=== PATIENT | female | born 1965 | race Caucasian/White ===

== ENCOUNTER 2017-01-29 14:26 | Emergency (ER) | payer MEDICAID ==
[~2017-01-29] VITALS: Ht 144.8 cm; Wt 81.6 kg
[~2017-01-29 14:26] MED LIST: ACTOS30 MG PO; COZAAR50 MG PO; GLUCOPHAGE1000 MG PO; LEVEMIR100 U/M1 SC; LEVEMIR100 U/ML SUBQ; LIPITOR20 MG PO; NEURONTIN300 MG PO
[2017-01-29 15:05] VITALS: BP 135/74
--- NOTE | 2017-01-29 15:32 | NUR ---
Patient to bed 05.
--- NOTE | 2017-01-29 15:34 | NUR ---
PT PRESENTS TO ER W/C/O EPIGASTRIC PAIN AND VOMITING SINCE THIS AM. HX DM.Pt states she has diarrhea and last noc and vomitted today; SKIN IS PINK/WARM/DRY; AAOX4 WITH EVEN AND STEADY GAIT; LUNGS CLEAR BL; HR EVEN AND REGULAR; PT DENIES ANY FEVER, CP, SOB, OR COUGH AT THIS TIME; PATIENT STATES PAIN OF 10/10 AT THIS TIME; VSS; PATIENT POSITIONED FOR COMFORT; HOB ELEVATED; BEDRAILS UP X2; BED DOWN. ER MD at bedside.
[2017-01-29] MEDS ORDERED: ONDANSETRON 4 MG/2 ML VIAL IVP ONE (15:35)
[2017-01-29] MEDS ORDERED: HYDROmorphone 1 MG/ML AMP IVP ONE (15:35)
--- NOTE | 2017-01-29 17:00 | NUR ---
PT WETN TO CT SCAN ACCOMPANIED BY TECH.
--- NOTE | 2017-01-29 17:27 | NUR ---
BACK FROM CT SCAN;NO ACUTE DISTRESS NOTED;ALL MONITORS IN PLACED;WILL CONTINUE TO MONITOR PT.
--- NOTE | 2017-01-29 17:57 | NUR ---
JENNY CABA AT BEDSIDE.
--- NOTE | 2017-01-29 18:26 | NUR ---
Patient discharged with v/s stable. Written and verbal after care instructions given and explained. Patient alert, oriented and verbalized understanding of instructions. Ambulatory with steady gait. All questions addressed prior to discharge. ID band removed. Patient advised to follow up with PMD. Rx of ZOFRAN ,BACTRIM AND PERCOCET given. Patient educated on indication of medication including possible reaction and side effects. Opportunity to ask questions provided and answered.
[2017-01-29 18:27] VITALS: BP 129/71
== END 2017-01-29 18:26 | disposition home or self-care (01) ==
LOC: MED 14:26
DX: N39.0 Urinary tract infection, site not specified (principal); E11.9 Type 2 diabetes mellitus without complications; I10 Essential (primary) hypertension; Z90.49 Acquired absence of other specified parts of digestive tract
CPT/HCPCS: 36415; 74177; 80053; 81001; 82150; 83690; 84484; 85025; 85651; 86140; 93005; 96374; 96375; 99285; J1170; J2405; Q9967

== ENCOUNTER 2018-09-26 18:35 | Inpatient (IN) | payer MEDICAID ==
[~2018-09-26] VITALS: Ht 160 cm; Wt 92.5 kg
[~2018-09-26 18:35] MED LIST changes: -ACTOS30 MG PO; +ATOR20TA PO; +COZ50 PO; -COZAAR50 MG PO; -GLUCOPHAGE1000 MG PO; +INSU100S55 SC; -LEVEMIR100 U/M1 SC; -LEVEMIR100 U/ML SUBQ; -LIPITOR20 MG PO; +METF1000 PO; -NEURONTIN300 MG PO; +PIOG30TA PO
[2018-09-26 18:53] VITALS: BP 146/101
--- NOTE | 2018-09-26 19:10 | NUR ---
NOTIFIED DR. GOSS OF BLOOD SUGAR AND 06/11 PAIN. STATED, "NO NEW ORDERS UNLESS NEEDING TO BE INTUBATED."
--- NOTE | 2018-09-26 19:16 | NUR ---
Pt presents to ED with complains of diffuse abdominal pain starting yesterday worsening today. Pt c/o bloating pain, diffusely 10/10. Pt also c/o nausea and chills. Denies fever or vomiting. Denies diarrhea. LBM 3 days ago. Pt tender to palpation in all quadrants, bowel sounds present x4 quadrants. Denies any heavy lifting. Denies having pain like this in the past. Pt appears uncomfortable, VSS.
[2018-09-26 19:23] LABS: BASOPHILS # (AUTO) 0.1 K/uL (0.00-0.22); BASOPHILS % (AUTO) 0.7 % (0.0-2.0); EOSINOPHILS # (AUTO) 0.1 K/uL (0-0.4); EOSINOPHILS % (AUTO) 0.7 % (0.0-4.0); HEMATOCRIT 36.6 % (36-48); HEMOGLOBIN 11.5 g/dL (12.0-16.0); LYMPHOCYTES % (AUTO) 20.4 % (20.5-51.1); MEAN CORPUSCULAR HEMOGLOBIN 26 pg (27-31); MEAN CORPUSCULAR HGB CONC 31 g/dL (33-37); MEAN CORPUSCULAR VOLUME 81.8 fL (80-94); MONOCYTES # (AUTO) 1.1 K/uL (0.8-1.0); MONOCYTES % (AUTO) 7.8 % (1.7-9.3); NEUTROPHILS # (AUTO) 10.3 K/uL (1.8-7.7); NEUTROPHILS % (AUTO) 70.4 % (42.2-75.2); PLATELET COUNT (AUTO) 330 K/uL (140-450); RED BLOOD CELL COUNT(AUTO) 4.48 MIL/uL (4.20-5.40); RED CELL DISTRIBUTION WIDTH 14.5 % (11.6-13.7); WHITE BLOOD COUNT (AUTO) 14.7 K/uL (4.8-10.8)
[2018-09-26] MEDS ORDERED: NACL 0.9% 1,000 ML IV ONE (19:35)
[2018-09-26] MEDS ORDERED: MORPHINE SULFATE 4 MG/ML SYR IVP ONE ×2 (19:35→21:15)
[2018-09-26] MEDS ORDERED: ONDANSETRON 4 MG/2 ML VIAL IVP ONE (19:35)
[2018-09-26 19:36] LABS: APPEARANCE,URINE CLEAR (CLEAR); BILIRUBIN,URINE NEGATIVE (NEGATIVE); BLOOD, URINE NEGATIVE (NEGATIVE); COLOR,URINE YELLOW (YELLOW); LEUKOCYTE ESTERASE ,URINE NEGATIVE (NEGATIVE); NITRITE, URINE NEGATIVE (NEGATIVE); UGLUCOSE 3+ (NEGATIVE)
[2018-09-26 19:44] LABS: ALBUMIN 3.6 g/dL (3.4-5.0); ANION GAP 12.6 (8-16); CARBON DIOXIDE 27.3 mmol/L (21-32); CREATININE 0.8 mg/dL (0.6-1.3); POTASSIUM 3.9 mmol/L (3.5-5.1); TOTAL BILIRUBIN 0.4 mg/dL (0.0-1.0)
--- NOTE | 2018-09-26 20:00 | NUR ---
ASSUMED CARE OF PT AT THIS TIME.
[2018-09-26] MEDS ORDERED: INSULIN REGULAR, HUMAN 100 UNIT/ML VIAL SUBQ ONE (20:05)
--- NOTE | 2018-09-26 20:30 | NUR ---
PT RESTING IN BED. HANDS FOLDED, FEET UNCROSSED. RR EVEN/UNLABORED. NO DISTRESS NOTED.
[2018-09-26] MEDS ORDERED: CIPROFLOXACIN 250 MG TAB PO ONE (20:45)
[2018-09-26] MEDS ORDERED: metroNIDAZOLE 500 MG/NS PREMIX 100 ML IV ONE (20:45)
[2018-09-26] MEDS ORDERED: ZOLPIDEM 5 MG TAB PO PRN (21:05)
[2018-09-26] MEDS ORDERED: DOCUSATE SODIUM 100 MG GELCAP PO PRN (21:05)
[2018-09-26] MEDS ORDERED: ONDANSETRON 4 MG/2 ML VIAL IM/IVP PRN (21:05)
[2018-09-26] MEDS ORDERED: LORazepam 2 MG/ML VIAL IM/IVP PRN (21:05)
[2018-09-26 21:28] VITALS: BP 118/58
--- NOTE | 2018-09-26 21:28 | NUR ---
PT ARRIVED VIA GURNEY TO ROOM 111B ESCORTED BY EMT AND NICOLE SPEEDER FRAME TENDERDISBURSING AGENT ER NURSE. PT AMBULATED TO BED B. REPORT GIVEN AT BEDSIDE FOR CONTINUITY OF CARE, PT IN STABLE CONDITION. PT IS AOX4 WITH SKIN IN TACT.SHE HAS A LEFT AC 22G RUNNING FLAGYL AT THIS TIME. LUNG SOUNDS CLEAR AND BOWEL SOUNDS PRESENT BUT DIMINISHED. PT C/O 8/10 PAIN IN ABDOMEN. WILL MEDICATE PT.
--- NOTE | 2018-09-26 21:40 | NUR ---
Patient will be admitted to care of DR. ROBERTSON. Admited to [facility]. Will go to room 11B. Belongings list completed. Report to KAMILLA LYNN.
[2018-09-26 21:46] LABS: BARBITURATE, URINE NEG. ng/ml (NEG <=200); BENZODIAZEPINE, URINE NEG. ng/mL (NEG <=200); CANNABINOID, URINE NEG. ng/mL (NEG <=50); COCAINE, URINE NEG. ng/mL (NEG <=300); OPIATE, URINE NEG. ng/mL (NEG <=2000); PHENCYCLIDINE SCREEN,URINE NEG. ng/mL (NEG <=25)
[2018-09-26] MEDS: DEXT 5% / NACL 0.45% 1,000 ML IV SCH (21:46)
[2018-09-26 21:55] LABS: MAGNESIUM 1.8 mg/dL (1.8-2.4); PHOSPHORUS 2.5 mg/dL (2.5-4.9); THYROID STIMULATING HORMONE 1.35 uIU/mL (0.34-3.74)
[2018-09-26] MEDS ORDERED: DEXTROSE 50% 50 ML SYR IVP PRN (22:10)
[2018-09-26 22:33] LABS: PROTHROMBIN TIME 8.9 secs (10.8-13.4)
[2018-09-26] MEDS: MORPHINE SULFATE 2 MG/ML SYR IVP PRN (22:35)
--- NOTE | 2018-09-26 22:35 | NUR ---
PT CONTINUE TO C/O OF 8/10 PAIN , GIVEN MORPHINE IVP A ORDERED FOR 8/[address] STRANGE AT BEDSIDE EVALUATING PT.
--- NOTE | 2018-09-26 23:00 | NUR ---
NEW ORDERED FOR D5 AND 1/2 N/S TO RUN AT 100MLS/HR.
[2018-09-26] MEDS ORDERED: INSU100S53 SC (23:35)
[2018-09-26] MEDS ORDERED: METF-350 PO (23:35)
[2018-09-26] MEDS ORDERED: cefTRIAXone 1,000 MG VIAL ONE (23:57)
--- NOTE | 2018-09-27 | NUR ---
PT IN BED RESTING WITH EYES CLOSED T 97.5 P 92 R 18 B/P 118/58 02 98% ON R/A. RECHECK OF FINGERSTICK IS 200. BED LOW WITH SIDE RAILS UP X2 AND CALL MOORE IN REACH.
--- NOTE | 2018-09-27 03:14 | NUR ---
PT SLEEPING SOUNDLY IN LOW BED WITH SIDE RIALS UP X2 AND CALL MOORE IN REACH.
[2018-09-27 04:00] VITALS: BP 107/53
[2018-09-27] MEDS: metroNIDAZOLE 500 MG/NS PREMIX 100 ML IV SCH ×3 (04:46→20:55)
[2018-09-27] MEDS: MORPHINE SULFATE 2 MG/ML SYR IVP PRN ×3 (05:04→20:56)
--- NOTE | 2018-09-27 05:08 | NUR ---
PT IN LOW BED WITH SIDE RAILS UP X2 AND CALL MOORE IN REACH. PT GIVEN ORDERED FLAGYL AND IS RUNNING AT 100MLS/HR. V/S T 98.23 P 88 R 18 B/P 107/53 02 97%. PT C/O 04/11 PAIN AND WAS GIVEN PRN IVP MORPHINE . WILL MONITOR EFFECT.
[2018-09-27] MEDS ORDERED: PNEUMOCOCCAL VACCINE 23 MCG/0.5 ML VIAL IMVAC PRN (06:35)
[2018-09-27] MEDS ORDERED: INFLUENZA VIRUS VACCINE QUAD 0.5 ML SYR IMVAC PRN (06:35)
[2018-09-27] MEDS: BLOOD GLUCOSE MONITORING 1 DEV DEV FS SCH ×4 (06:44→21:24)
[2018-09-27] MEDS: INSULIN LISPRO SLIDING SCALE 100 UNITS/ML VIAL SUBQ PRN ×4 (06:46→21:38)
--- NOTE | 2018-09-27 06:46 | NUR ---
F/S 286 6 UNITS OF HUMALOG COVERAGE PROVIDED
--- NOTE | 2018-09-27 07:25 | NUR ---
RECEIVED REPORT FROM LEASE PURCHASE TRUCK DRIVER NURSE. PATIENT LYING DOWN IN BED SLEEPING, AROUSABLE BY VOICE. NO DISTRESS NOTED. PAIN WITHIN TOLERABLE AT THIS TIME. AAOX4, CALM, COOPERATIVE, SKIN COLOR APPROPRIATE TO ETHNICITY, WARM TO TOUCH. SKIN INTACT. IV SITE INTACT, PATENT, AND INFUSING IVF PER MD ORDERS. RESPIRATIONS EVEN, UNLABORED, ON ROOM AIR. SAFETY MEASURES IN PLACE, CALL LIGHT WITHIN REACH. WILL CONTINUE TO MONITOR.
[2018-09-27 08:00] VITALS: BP 105/57
[2018-09-27] MEDS ORDERED: metFORMIN 850 MG TAB PO SCH (08:00)
[2018-09-27] MEDS: KETOROLAC 30 MG/ML VIAL IVP PRN ×2 (08:40→17:37)
[2018-09-27] MEDS: LACTOBACILLUS RHAMNOSUS GG 1 EACH CAP PO SCH (08:41)
[2018-09-27] MEDS: DEXT 5% / NACL 0.45% 1,000 ML IV SCH ×2 (08:45→22:12)
--- NOTE | 2018-09-27 08:52 | NUR ---
PATIENT SITTING IN BED TALKING TO SON AT BEDSIDE. COMPLAINS OF ABD PAIN, TORADOL GIVEN PER MD ORDERS. OTHER SCHEDULED MEDICATIONS DUE GIVEN. WILL CONTINUE TO MONITOR.
[2018-09-27 10:06] LABS: BASOPHILS # (AUTO) 0.1 K/uL (0.00-0.22); BASOPHILS % (AUTO) 0.5 % (0.0-2.0); EOSINOPHILS # (AUTO) 0.1 K/uL (0-0.4); EOSINOPHILS % (AUTO) 0.9 % (0.0-4.0); HEMATOCRIT 33.3 % (36-48); HEMOGLOBIN 10.5 g/dL (12.0-16.0); LYMPHOCYTES # (AUTO) 2.2 K/uL (2.5-16.5); LYMPHOCYTES % (AUTO) 18.8 % (20.5-51.1); MEAN CORPUSCULAR HEMOGLOBIN 26 pg (27-31); MEAN CORPUSCULAR HGB CONC 32 g/dL (33-37); MONOCYTES % (AUTO) 8.5 % (1.7-9.3); NEUTROPHILS # (AUTO) 8.2 K/uL (1.8-7.7); NEUTROPHILS % (AUTO) 71.3 % (42.2-75.2); PLATELET COUNT (AUTO) 286 K/uL (140-450); RED BLOOD CELL COUNT(AUTO) 4.11 MIL/uL (4.20-5.40); RED CELL DISTRIBUTION WIDTH 14.3 % (11.6-13.7); WHITE BLOOD COUNT (AUTO) 11.5 K/uL (4.8-10.8)
[2018-09-27 10:27] LABS: CHOL/HDL RATIO 3.1 (1-4.5)
[2018-09-27 10:28] LABS: ANION GAP 11.5 (8-16); CARBON DIOXIDE 26.8 mmol/L (21-32); CREATININE 0.6 mg/dL (0.6-1.3); MAGNESIUM 1.8 mg/dL (1.8-2.4); PHOSPHORUS 2.5 mg/dL (2.5-4.9); POTASSIUM 3.3 mmol/L (3.5-5.1); TOTAL BILIRUBIN 0.3 mg/dL (0.0-1.0)
--- NOTE | 2018-09-27 12:14 | NUR ---
PATIENT LYING IN BED WITH COMPLAINTS OF PAIN. MORPHINE GIVEN. OTHER SCHEDULED MEDICATIONS DUE GIVEN. WILL CONTINUE TO MONITOR.
[2018-09-27] MEDS ORDERED: POTASSIUM CHLORIDE 10 MEQ TABER PO SCH (12:35)
--- NOTE | 2018-09-27 13:44 | NUR ---
PATIENT LYING DOWN IN BED TALKING WITH DAUGHTER AT BEDSIDE. NO DISTRESS NOTED. PAIN WITHIN TOLERABLE. SCHEDULED MEDICATIONS DUE GIVEN. WILL CONTINUE TO MONITOR.
[2018-09-27] MEDS: HYDROcodone/APAP 5/325 MG 1 TAB TAB PO PRN (14:22)
--- NOTE | 2018-09-27 14:29 | NUR ---
PATIENT COMPLAINS OF ABD PAIN, NORCO GIVEN. COMPLAINS OF FEELING SENSATION TO HAVE BM BUT CANNOT. DOCUSATE SODIUM PRN GIVEN AT THIS TIME. WILL CONTINUE TO MONITOR.
[2018-09-27 16:00] VITALS: BP 117/50
--- NOTE | 2018-09-27 16:38 | NUR ---
PATIENT LYING DOWN IN BED SLEEPING, AROUSABLE BY VOICE. NO DISTRESS NOTED. PAIN WITHIN TOLERABLE. WILL CONTINUE TO MONITOR.
--- NOTE | 2018-09-27 17:39 | NUR ---
PATIENT SITTING IN BED WITH COMPLAINS OF ABD PAIN, TORADOL GIVEN PER MD ORDERS. WILL CONTINUE TO MONITOR.
--- NOTE | 2018-09-27 19:28 | NUR ---
GAVE REPORT TO SUPERVISOR TUBING NURSE FOR CONTINUITY OF CARE. PATIENT IN STABLE CONDITION.
--- NOTE | 2018-09-27 19:29 | NUR ---
RECD. RESTING IN BED, AWAKE, A/OX4. RESPIRATION EVEN AND UNLABORED. CONVERSING WITH VISITORS AT THE BEDSIDE. AMBULATORY TO THE BR. IV OF D51/2 NS AT 70 ML/HR INFUSING, LEFT AC G20. PLAN OF CARE FOR THE SHIFT DISCUSSED. VERBALIZED UNDERSTANDING. DENIES PAIN 0/10.
--- NOTE | 2018-09-27 20:00 | NUR ---
Patient's Plan of Care was discussed and reviewed with ALBACORE FISHING BOAT CREWMAN: PUJA, WILL CONTINUE WITH CURRENT PLAN OF CARE.
[2018-09-27 20:54] VITALS: BP 126/63
[2018-09-27] MEDS: INSULIN LANTUS 100 UNITS/ML 10 ML VIAL SUBQ SCH (21:32)
--- NOTE | 2018-09-27 21:35 | NUR ---
JELLO GIVEN FOR SNACK FOR THE NIGHT.
[2018-09-27] MEDS: ACETAMINOPHEN 325 MG TAB PO PRN (21:46)
--- NOTE | 2018-09-28 | NUR ---
SLEEPING COMFORTABLY IN BED.
[2018-09-28 03:01] VITALS: BP 117/62
[2018-09-28] MEDS: MORPHINE SULFATE 2 MG/ML SYR IVP PRN ×3 (03:10→23:48)
[2018-09-28] MEDS: metroNIDAZOLE 500 MG/NS PREMIX 100 ML IV SCH ×3 (05:03→21:51)
[2018-09-28] MEDS: BLOOD GLUCOSE MONITORING 1 DEV DEV FS SCH ×4 (06:04→21:22)
[2018-09-28] MEDS: INSULIN LISPRO SLIDING SCALE 100 UNITS/ML VIAL SUBQ PRN ×2 (06:07→11:50)
[2018-09-28] MEDS ORDERED: BISACODYL 10 MG SUPP RC SCH (06:30)
[2018-09-28] MEDS: NACL 0.9% 1,000 ML IV SCH ×2 (06:34→22:40)
--- NOTE | 2018-09-28 06:34 | NUR ---
PATIENT HAS BEEN SCREENED AND CATEGORIZED MODERATE NUTRITION RISK. PATIENT WILL BE SEEN WITHIN 3-5 DAYS OF ADMISSION. 09/29/18-10/01/18 RAMAN OROZCO MS, RDN
--- NOTE | 2018-09-28 06:45 | NUR ---
STATED NO BM SINCE SATURDAY, MEDICATED WITH DULCOLAX SUPPOSITORY ORDERED.
[2018-09-28] MEDS ORDERED: SIMETHICONE 80 MG TAB.CHEW PO PRN (06:50)
[2018-09-28 07:15] LABS: BASOPHILS % (AUTO) 0.3 % (0.0-2.0); EOSINOPHILS # (AUTO) 0.2 K/uL (0-0.4); EOSINOPHILS % (AUTO) 2.3 % (0.0-4.0); HEMATOCRIT 34.7 % (36-48); HEMOGLOBIN 10.9 g/dL (12.0-16.0); LYMPHOCYTES # (AUTO) 1.6 K/uL (2.5-16.5); LYMPHOCYTES % (AUTO) 17.9 % (20.5-51.1); MEAN CORPUSCULAR HEMOGLOBIN 26 pg (27-31); MEAN CORPUSCULAR HGB CONC 31 g/dL (33-37); MEAN CORPUSCULAR VOLUME 82.3 fL (80-94); MONOCYTES # (AUTO) 0.8 K/uL (0.8-1.0); MONOCYTES % (AUTO) 8.7 % (1.7-9.3); NEUTROPHILS # (AUTO) 6.5 K/uL (1.8-7.7); NEUTROPHILS % (AUTO) 70.8 % (42.2-75.2); PLATELET COUNT (AUTO) 286 K/uL (140-450); RED BLOOD CELL COUNT(AUTO) 4.21 MIL/uL (4.20-5.40); RED CELL DISTRIBUTION WIDTH 14.5 % (11.6-13.7); WHITE BLOOD COUNT (AUTO) 9.1 K/uL (4.8-10.8)
--- NOTE | 2018-09-28 07:15 | NUR ---
VERBALIZED SHE HAD ONLY A SMALL BM.
--- NOTE | 2018-09-28 07:25 | NUR ---
ENDORSED TO AM NURSES FOR CONTINUITY OF CARE. CONDITION REMAIN STABLE.
--- NOTE | 2018-09-28 07:26 | NUR ---
RECEIVED BEDSIDE REPORT FROM ER REGISTRAR NURSE. PATIENT IS AOX4. DENIES OF PAIN AT THE MOMENT, NO SIGNS OF DISTRESS NOTED IN RA. RESPIRATION EVEN AND UNLABORED. IV INTACT AND PATENT, AND INFUSING IVF PER ORDER. IV SITE IS CLEAN AND DRY. AMBULATE WITH STEADY GAIT. SKIN INTACT, DRY AND CLEAN. PLAN OF CARE FOR THE SHIFT DISCUSSED. PATIENT VERBALIZED UNDERSTANDING. BED IN LOW POSITION, CALL LIGHT WITHIN REACH. SAFETY MEASURES IN PLACE. WILL CONTINUE TO MONITOR.
[2018-09-28 07:54] LABS: ANION GAP 9.7 (8-16); CARBON DIOXIDE 27.1 mmol/L (21-32); CREATININE 0.6 mg/dL (0.6-1.3); POTASSIUM 3.8 mmol/L (3.5-5.1)
[2018-09-28 08:00] VITALS: BP 134/79
[2018-09-28 08:12] LABS: MAGNESIUM 1.8 mg/dL (1.8-2.4)
[2018-09-28] MEDS: LACTOBACILLUS RHAMNOSUS GG 1 EACH CAP PO SCH (08:30)
[2018-09-28] MEDS: KETOROLAC 30 MG/ML VIAL IVP PRN ×2 (08:30→18:57)
--- NOTE | 2018-09-28 08:34 | NUR ---
PATIENT LYING DOWN IN BED. NO DISTRESS NOTED. COMPLAINS OF ABD PAIN, TORADOL GIVEN PER ORDERS. DENIES ANY NAUSEA/VOMITING OVERNIGHT WITH CLEAR LIQUID DIET. WILL CONTINUE TO MONITOR.
[2018-09-28] MEDS ORDERED: METOCLOPRAMIDE 10 MG TAB PO SCH (08:41)
--- NOTE | 2018-09-28 10:12 | NUR ---
0840 REGLAN NOT GIVEN DUE TO BEING TOO CLOSE TO NEXT DOSE SCHEDULED AT 1130. WILL GIVE 1130 DOSE.
[2018-09-28] MEDS ORDERED: GENTAMICIN 240 MG in DEXTROSE 5% 100 ML IV SCH (11:00)
[2018-09-28] MEDS: METOCLOPRAMIDE 10 MG TAB PO SCH ×2 (11:35→16:25)
[2018-09-28] MEDS: ACETAMINOPHEN 325 MG TAB PO PRN (13:43)
--- NOTE | 2018-09-28 15:30 | NUR ---
PATIENT IS RESTING ON BED WITH ALTON AT BEDSIDE. DENIES OF PAIN. NO SIGNS OF DISTRESS NOTED. WILL CONTINUE TO MONITOR.
[2018-09-28 16:00] VITALS: BP 126/59
[2018-09-28] MEDS ORDERED: POTASSIUM CHLORIDE 10 MEQ TABER PO SCH (16:00)
--- NOTE | 2018-09-28 17:04 | NUR ---
PATIENT LYING DOWN IN BED. NO DISTRESS NOTED. SCHEDULED MEDICATIONS DUE GIVEN. SOAP MG ENEMA GIVEN PER MD ORDERS. PATIENT HAD SMALL BM AFTER SOAP MG ENEMA. PATIENT TOLERATED WELL AND REPORTS FEELING BETTER AFTER SOAP MG ENEMA ADMINISTERED. WILL CONTINUE TO MONITOR.
--- NOTE | 2018-09-28 17:05 | NUR ---
CALLED [facility] [place] AND SPOKE TO THE NURSE STEFAN ON REGARDS OF PATIENT IS GOING TO BE TRANSFERRED AT 1999. GAVE FULL REPORT ON PATIENT'S PLAN OF CARE. INFORMED THAT PATIENT WILL BE ON ZOSYN FOR 5 DAYS Q6H, PT IS NEEDED, AND BREATHING TREATMENT NEEDED. ANSWERED ALL OF RN QUESTIONS. RN VERBALIZED COMPLETELY UNDERSTANDING. AWAITING FOR PATIENT TO ARRIVAL. CALLED PATIENT'S CHILD BRANDON AND LEFT A VOICE MESSAGE ON REGARD OF PATIENT IS GOING TO BE TRANSFERRED TO [facility] [place] AND A CALL BACK PHONE NUMBERS IF HE HAS ANY QUESTION. Addendum: 09/28/18 at 1747 by Janie Wen RN DISREGARD NOTE, WRONG PATIENT.
--- NOTE | 2018-09-28 18:59 | NUR ---
PATIENT COMPLAINS OF ABD PAIN, TORADOL GIVEN PER MD ORDERS. WILL CONTINUE TO MONITOR.
--- NOTE | 2018-09-28 19:28 | NUR ---
GAVE REPORT TO POWER TECHNICIAN NURSE FOR CONTINUITY OF CARE. PATIENT IN STABLE CONDITION.
--- NOTE | 2018-09-28 19:29 | NUR ---
Patient's Plan of Care was discussed and reviewed with PAINT FACTORY WORKER: LOKI LUO
--- NOTE | 2018-09-28 19:29 | NUR ---
RECD. RESTING IN BED, AWAKE, A/OX4. RESPIRATION EVEN AND UNLABORED. IV OF NS AT 60 ML/HR INFUSING, LEFT AC G22. AMBULATORY TO BR. PLAN OF CARE FOR THE SHIFT DISCUSSED. VERBALIZED UNDERSTANDING. DENIES PAIN 0/10.
[2018-09-28] MEDS: INSULIN LANTUS 100 UNITS/ML 10 ML VIAL SUBQ SCH (21:27)
--- NOTE | 2018-09-28 22:00 | NUR ---
SNACK FOR THE NIGHT GIVEN.
[2018-09-29] VITALS: BP 121/68
--- NOTE | 2018-09-29 00:30 | NUR ---
IV INFILTRATED, NEW IV LINE INSERTED BY CHARGE NURSE KAMILLA, LEFT HAND G24.
[2018-09-29] MEDS: metroNIDAZOLE 500 MG/NS PREMIX 100 ML IV SCH ×2 (04:18→12:10)
[2018-09-29] MEDS: HYDROcodone/APAP 5/325 MG 1 TAB TAB PO PRN (04:51)
--- NOTE | 2018-09-29 06:30 | NUR ---
DR. ROJAS SPOKE WITH PATIENT, FOR POSSIBLE DISCHARGE TODAY.
[2018-09-29] MEDS: METOCLOPRAMIDE 10 MG TAB PO SCH ×2 (06:38→12:10)
[2018-09-29] MEDS: BLOOD GLUCOSE MONITORING 1 DEV DEV FS SCH ×2 (06:38→12:10)
[2018-09-29] MEDS: NACL 0.9% 1,000 ML IV SCH (06:40)
--- NOTE | 2018-09-29 07:20 | NUR ---
ABLE TO SLEEP WELL. CONDITION REMAIN STABLE. TOLERATING DIET. ENDORSED TO AM NURSE FOR CONTINUITY OF CARE.
--- NOTE | 2018-09-29 07:21 | NUR ---
RECEIVED REPORT FROM NIGHT NURSE. PATIENT LYING DOWN IN BED WATCHING VIDEOS ON HER PHONE. NO DISTRESS NOTED. PAIN WITHIN TOLERABLE. AAOX4, CALM COOPERATIVE, SKIN COLOR APPROPRIATE TO ETHNICITY. SKIN INTACT. IV SITE INTACT, PATENT, ON IVF PER MD ORDERS. ABDOMEN SOFT, OBESE. RESPIRATIONS EVEN, UNLABORED, ON ROOM AIR. SAFETY MEASURES IN PLACE, CALL LIGHT WITHIN REACH. WILL CONTINUE TO MONITOR.
[2018-09-29 08:00] VITALS: BP 113/56
--- NOTE | 2018-09-29 08:41 | NUR ---
PATIENT LYING DOWN IN BED WATCHING TV. NO DISTRESS NOTED. COMPLAINS OF PAIN, MORPHINE GIVEN PER MD ORDERS. OTHER SCHEDULED MEDICATIONS DUE GIVEN. WILL CONTINUE TO MONITOR.
[2018-09-29] MEDS ORDERED: METR500T1 PO (09:04)
[2018-09-29] MEDS ORDERED: LANTUS SUBQ (09:04)
[2018-09-29] MEDS ORDERED: DOCU-299 PO (09:04)
[2018-09-29] MEDS ORDERED: LACT10CA PO (09:04)
[2018-09-29] MEDS ORDERED: ATOR20TA40 PO (09:04)
[2018-09-29] MEDS ORDERED: LISI2.5T12 PO (09:04)
[2018-09-29] MEDS ORDERED: CIPR500T4 PO (09:04)
[2018-09-29] MEDS: LACTOBACILLUS RHAMNOSUS GG 1 EACH CAP PO SCH (09:05)
--- NOTE | 2018-09-29 09:05 | NUR ---
PATIENT SITTING IN BED WATCHING TV. FAMILY MEMBER AT BEDSIDE. SCHEDULED MEDICATIONS DUE GIVEN. WILL CONTINUE TO MONITOR.
[2018-09-29 09:11] LABS: BASOPHILS # (AUTO) 0.1 K/uL (0.00-0.22); BASOPHILS % (AUTO) 0.9 % (0.0-2.0); EOSINOPHILS # (AUTO) 0.2 K/uL (0-0.4); EOSINOPHILS % (AUTO) 2.9 % (0.0-4.0); HEMATOCRIT 34.9 % (36-48); HEMOGLOBIN 10.9 g/dL (12.0-16.0); LYMPHOCYTES # (AUTO) 2.7 K/uL (2.5-16.5); LYMPHOCYTES % (AUTO) 37.2 % (20.5-51.1); MEAN CORPUSCULAR HEMOGLOBIN 26 pg (27-31); MEAN CORPUSCULAR HGB CONC 31 g/dL (33-37); MEAN CORPUSCULAR VOLUME 82.3 fL (80-94); MONOCYTES # (AUTO) 0.6 K/uL (0.8-1.0); MONOCYTES % (AUTO) 8.8 % (1.7-9.3); NEUTROPHILS # (AUTO) 3.7 K/uL (1.8-7.7); NEUTROPHILS % (AUTO) 50.2 % (42.2-75.2); PLATELET COUNT (AUTO) 322 K/uL (140-450); RED BLOOD CELL COUNT(AUTO) 4.23 MIL/uL (4.20-5.40); RED CELL DISTRIBUTION WIDTH 14.4 % (11.6-13.7); WHITE BLOOD COUNT (AUTO) 7.3 K/uL (4.8-10.8)
[2018-09-29 09:22] LABS: ANION GAP 9.1 (8-16); CARBON DIOXIDE 27.7 mmol/L (21-32); CREATININE 0.6 mg/dL (0.6-1.3); POTASSIUM 3.8 mmol/L (3.5-5.1)
[2018-09-29 09:28] LABS: MAGNESIUM 1.8 mg/dL (1.8-2.4)
--- NOTE | 2018-09-29 11:30 | NUR ---
PATIENT LYING DOWN IN BED SLEEPING, AROUSABLE BY VOICE. NO DISTRESS NOTED. WILL CONTINUE TO MONITOR
[2018-09-29] MEDS: ACETAMINOPHEN 325 MG TAB PO PRN (12:17)
--- NOTE | 2018-09-29 12:45 | NUR ---
DISCHARGE INSTRUCTIONS PROVIDED TO PATIENT/FAMILY AT BEDSIDE IN [place] PATIENT PREFERS DAUGHTER TO TRANSLATE INSTEAD OF USING TRANSLATION SERVICES OFFERED. INSTRUCTIONS ON FOLLOW-UP VISIT WITH PCP, NEW/CHANGED MEDICATIONS, DIET REGIMEN, DM MANAGEMENT, AND DIVERTICULITIS MANAGEMENT. ANSWERED ALL OF PATIENT/FAMILY QUESTIONS REGARDING DISCHARGE. ALL BELONGINGS WITH PATIENT. IV SITE REMOVED WITH MINIMAL BLOOD AND LUMEN COMPLETELY INTACT. ID BANDS REMOVED. ESCORTED PATIENT DOWN TO LOBBY VIA WHEELCHAIR. PATIENT DISCHARGED AT THIS TIME IN STABLE CONDITION IN PRIVATE VEHICLE TO HOME.
[2018-09-29] MEDS ORDERED: INSULIN LANTUS 100 UNITS/ML 10 ML VIAL SUBQ SCH (21:00)
== END 2018-09-29 12:45 | disposition home or self-care (01) | DRG 720 ==
LOC: MED 18:35 → MTU 21:10
PROVIDERS: ADMIT General Practice; ATTEND General Practice
PROC: 3E02340 Introduction of Influenza Vaccine into Muscle, Percutaneous Approach (ICD-10-PCS; principal; 2018-09-27)
PROC: 3E0234Z Introduction of Serum, Toxoid and Vaccine into Muscle, Percutaneous Approach (ICD-10-PCS; 2018-09-27)
DX: A41.9 Sepsis, unspecified organism (principal); E11.65 Type 2 diabetes mellitus with hyperglycemia; K57.92 Diverticulitis of intestine, part unspecified, without perforation or abscess without bleeding; E66.01 Morbid (severe) obesity due to excess calories; E87.8 Other disorders of electrolyte and fluid balance, not elsewhere classified; K76.0 Fatty (change of) liver, not elsewhere classified; E83.51 Hypocalcemia; E87.1 Hypo-osmolality and hyponatremia; I10 Essential (primary) hypertension; N39.0 Urinary tract infection, site not specified; D64.9 Anemia, unspecified; E78.00 Pure hypercholesterolemia, unspecified; N28.1 Cyst of kidney, acquired; M51.27 Other intervertebral disc displacement, lumbosacral region; E87.6 Hypokalemia; E78.5 Hyperlipidemia, unspecified; Z68.36 Body mass index [BMI] 36.0-36.9, adult; Z71.3 Dietary counseling and surveillance; Z23 Encounter for immunization; Z79.84 Long term (current) use of oral hypoglycemic drugs; Z79.4 Long term (current) use of insulin; Z83.3 Family history of diabetes mellitus; Z82.49 Family history of ischemic heart disease and other diseases of the circulatory system
CPT/HCPCS: 36415; 71045; 74018; 80048; 80053; 80305; 81001; 81003; 82150; 82948; 83036; 83605; 83690; 83735; 83880; 84100; 84443; 84703; 85025; 85610; 85730; 87040; 87081; 87086; 90658; 90732; 93005; 93970; 96361; 96372; 96374; 99285; J0696; J1580; J1815; J1885; J2270; J2405; J3490; J7030; J7042; J7060; J8597; Q0092

== ENCOUNTER 2018-10-29 12:20 | Emergency (ER) | payer MEDICAID ==
[~2018-10-29] VITALS: Ht 157.5 cm; Wt 90.7 kg
[~2018-10-29 12:20] MED LIST changes: -ATOR20TA PO; +ATOR20TA40 PO; +CIPR500T4 PO; -COZ50 PO; +DOCU-299 PO; -INSU100S55 SC; +LACT10CA PO; +LANTUS SUBQ; +LISI2.5T12 PO; +METF-350 PO; -METF1000 PO; +METR500T1 PO; -PIOG30TA PO
[2018-10-29 12:26] VITALS: BP 156/76
--- NOTE | 2018-10-29 14:16 | NUR ---
FIRST CALL AT THIS TIME. NO RESPONSE
--- NOTE | 2018-10-29 14:56 | NUR ---
SECOND CALL AT THIS TIME, PT NOT PRESENT. WILL ATTEMPT 3RD CALL
== END 2018-10-29 14:16 | disposition left against medical advice (07) ==
LOC: MED 12:20
DX: R10.2 Pelvic and perineal pain (principal); Z53.21 Procedure and treatment not carried out due to patient leaving prior to being seen by health care provider

== ENCOUNTER 2018-10-30 09:31 | Emergency (ER) | payer MEDICAID ==
[~2018-10-30] VITALS: Ht 152.4 cm; Wt 89.8 kg
[2018-10-30 09:31] VITALS: BP 107/59
--- NOTE | 2018-10-30 09:35 | NUR ---
PT BIB SELF, SEEN HERE YESTERDAY C/O VAGINAL PAIN 05/12 X 4 DAYS, STATED "I HAVE TWO LUMPS ON MY VAGINA" DENIES BLEEDING, DISCHARGE. BS 113 PATIENT IN GOWN, BED IS DOWN, LOCKED, BED RAIL X 1, ERMD NOTIFIED OF PATIENT STATUS HX---DM MEDS--LANTUS, REGULAR INSULIN
--- NOTE | 2018-10-30 10:50 | NUR ---
DR KHALIL AT BEDSIDE
[2018-10-30] MEDS ORDERED: KETOROLAC 60 MG/2 ML VIAL IM ONE (10:55)
--- NOTE | 2018-10-30 11:43 | NUR ---
Israel hendrickson in [facility] - 10/30/18 at 1144 by [email or web address] BP IS 183/117, ERMD NOTIFIED
[2018-10-30 12:00] VITALS: BP 118/81
--- NOTE | 2018-10-30 12:00 | NUR ---
Patient discharged with v/s stable. Written and verbal after care instructions given and explained. Patient alert, oriented and verbalized understanding of instructions. Ambulatory with steady gait. All questions addressed prior to discharge. ID band removed. Patient advised to follow up with PMD. Rx of Keflex 500mg, Bactrim DS 800-160mg, and [place] 5mg-325mg given. Patient educated on indication of medication including possible reaction and side effects. Opportunity to ask questions provided and answered.
== END 2018-10-30 12:00 | disposition home or self-care (01) ==
LOC: MED 09:31
DX: N76.4 Abscess of vulva (principal); E11.9 Type 2 diabetes mellitus without complications; I10 Essential (primary) hypertension; Z79.4 Long term (current) use of insulin; Z79.899 Other long term (current) drug therapy
CPT/HCPCS: 81002; 81025; 96372; 99283; J1885

== ENCOUNTER 2022-02-05 14:25 | Emergency (ER) | payer MEDICAID ==
[~2022-02-05] VITALS: Ht 147.3 cm; Wt 93.6 kg
[2022-02-05 14:36] VITALS: BP 129/73
--- NOTE | 2022-02-05 14:39 | NUR ---
PT AMB TO ER BED 6
[2022-02-05] MEDS ORDERED: NITR100C7 PO (15:24)
[2022-02-05] MEDS ORDERED: IBUP-2213 PO (15:24)
--- NOTE | 2022-02-05 15:42 | NUR ---
57YO FEMALE PT C/O INCONTINENCE. PT STATES URGENCY , DRIBBLING AT AT TIMES INCONTINENCE X3 DAYS.PT DENIES PAIN. PT STATES OCCASIONAL CHILLS AND LEG PAIN AFTER USING RESTROOM. PT DENIES SOB, CHEST PAIN OR N/V/D. ALL VITALS WITHIN NORMAL RANGE , ALL NEEDS MET AT THIS TIME. SHAYNE DUFF
--- NOTE | 2022-02-05 15:42 | NUR ---
Patient discharged with v/s stable. Written and verbal after care instructions FOR UTI , OVERACTVE BLADDER AND HEMATURIA given and explained. Patient alert, oriented and verbalized understanding of instructions. Ambulatory with steady gait. All questions addressed prior to discharge. ID band removed. Patient advised to follow up with PMD. Rx of IBUPROFEN AND MACROBID given. Opportunity to ask questions provided and answered.
--- NOTE | 2022-02-05 15:43 | NUR ---
Chart checked and completed. The patient's care was reviewed and supervised by Diana Orta RN.
--- NOTE | 2022-02-07 17:53 | NUR ---
LATE ENTRY. RECEIVED LAB RESULT FOR URINE CULTURE OF MULTIPLE ORGANISMS PRESENT. PER DR LEACH, CONTACT PT TO INFORM HER TO FINISH ANTIBIOTICS AND IF SHE IS STILL HAVING S/S, TO RETURN TO ER, IF NOT, TREATMENT APPROPRIATE. ATTEMPTED TO CONTACT PT, NO ANSWER, UNABLE TO LEAVE VOICEMAIL. DR LEACH MADE AWARE. FORM IN BINDER.
== END 2022-02-05 15:42 | disposition home or self-care (01) ==
LOC: MED 14:25
DX: N39.0 Urinary tract infection, site not specified (principal); E11.9 Type 2 diabetes mellitus without complications; I10 Essential (primary) hypertension; Z79.4 Long term (current) use of insulin
CPT/HCPCS: 81002; 87086; 99283